=== PATIENT | female | born 1950 | race Caucasian/White ===

== ENCOUNTER 2018-01-05 16:22 | Emergency (ER) | payer OTHER, MEDICAID ==
--- NOTE | 2018-01-05 16:29 | EDPHY ---
H & P Source: Patient, Police, Old records Exam Limitations: Clinical condition - Medical/Surgical History Hx Asthma: Yes Hx Chronic Respiratory Disease: Yes Hx Diabetes: No Hx Cardiac Disease: No Hx Renal Disease: No Hx Cirrhosis: No Hx Alcoholism: No Hx HIV/AIDS: No Hx Splenectomy or Spleen Trauma: No Other PMH: copd, paranoid schizophrenia, schizoaffective do - Social History Smoking Status: Heavy smoker Time Seen by Provider: 01/05/18 16:28 HPI/ROS: HPI: This is a 67-year-old female who presents with Chief Complaint: Suicidal ideation, M1 hold Location:psych Quality: Psychotic Duration: Today Signs and Symptoms: Unable to obtain due to clinical condition Timing: Acute on chronic Severity: Severe Context: Patient has a history of paranoid schizophrenia, schizoaffective disorder presents via police on M1 hold in 4 point restraints. 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 Since that time, she has remained in her cell and been very uncooperative. Today, crisis nurse tried to evaluate the patient and she became belligerent, uncooperative. She tried to scoop feces out of the toilet and throw on the division officer weapons department nurse. They found her covered in feces, delusional in her retirement cell. They placed on M1 hold and brought her to the emergency room for further evaluation in 4 point restraints. Patient is rambling with unwillingness to answer any questions. She has a spit mask covering her head. Modifying Factors: None Comment: ROS: see HPI Constitutional: No fever, no chills, no weight loss Eyes: No blurred vision Respiratory: No shortness of breath, no cough Cardiovascular: No chest pain Gastrointestinal: No nausea, no vomiting, no diarrhea Genitourinary: No dysuria Extremities: No myalgias Neurologic: No weakness, no numbness Skin: No rashes Hematologic: No bruising, no bleeding MEDICAL/SURGICAL/SOCIAL HISTORY: Medical history: copd, paranoid schizophrenia, schizoaffective do Surgical history: Denies Social history: History of homelessness but [place]. Smoker. Denies alcohol use. CONSTITUTIONAL: Petite, disheveled uncooperative elderly white female, yelling and screaming, awake and alert, no obvious distress HEENT: Atraumatic and normocephalic, PERRL, EOMI. Tympanic membranes clear. Oropharynx clear, no exudate and moist pink mucosa. Airway patent. No lymphadenopathy. No meningismus. Cardiovascular: Normal S1/S2, regular rate, regular rhythm, without murmur rub or gallop. PULMONARY/CHEST: Symmetrical and nontender. Clear to auscultation bilaterally. Good air movement. No accessory muscle usage. ABDOMEN: Soft, nondistended, nontender, no rebound, no guarding, no peritoneal signs, no masses or organomegaly. No CVAT. EXTREMITIES: 2/2 pulses, strength 5/5, no deformities, no clubbing, no cyanosis or edema. NEUROLOGICAL: no focal neuro deficits. GCS 15. SKIN: Warm and dry, no erythema. no rash. Good capillary refill. PSYCH: Poor eye contact, + flight of ideas, + tangential disorganized thought process, poor insight and judgment, unknown auditory and visual command hallucinations, unknown suicidal ideation with a plan, unknown homicidal ideation, + paranoid ([place]) Constitutional: Initial Vital Signs Temperature (C) 36.8 C 01/05/18 17:14 Heart Rate 111 H 01/05/18 17:14 Respiratory Rate 24 H 01/05/18 17:14 Blood Pressure 178/77 H 01/05/18 17:14 O2 Sat (%) 98 01/05/18 17:14 O2 Delivery Mode Room Air Allergies/Adverse Reactions: Tetanus Vaccines and Toxoid [Tetanus] Allergy (Verified 08/27/13 11:23) Home Medications: Medication Instructions Recorded fluPHENAZine DECANOATE 25 mg IJ Q21D 11/12/13 [Fluphenazine Decanoate] levOFLOXACIN [Levaquin] 500 mg PO DAILY #10 tab 10/29/15 predniSONE [prednisone 20mg (RX)] 3 tab PO DAILY #15 tab 10/29/15 Medical Decision Making ED Course/Re-evaluation: 1630: Agree with M1 hold upon arrival. Given IM Haldol 5 mg in IM Ativan 2 mg due to patient being at harm to herself as well as staff. Labs and UDS ordered. 2002: Reviewed labs and UDS positive for benzodiazepines. Medically clear for mental health evaluation. Given Zyprexa TLC evaluated patient looking for placement at [address] [place] [address]. 0000: End of shift. Signed over to Dr. Stack pending placement at [address] [place] [address]. This patient was seen under the supervision of my primary supervising physician. I evaluated care for this patient independently. Discussed this patient with Dr. Coronado who did not see the patient. (Carolina Kirkland) [id number]: Patient signed out to Dr. Hoffman at shift-change. Will most likely be admitted to . (Francis Stack) Differential Diagnosis: Differential diagnosis includes but is not limited to psychosis, emigdio, schizophrenia, suicidal ideation. (Carolina Kirkland) - Data Points Laboratory Results: Laboratory Results 01/05/18 16:40 01/05/18 16:40 01/05/18 19:29 Urine Opiates Screen NEGATIVE (NEGATIVE) Urine Barbiturates NEGATIVE (NEGATIVE) Ur Phencyclidine Scrn NEGATIVE (NEGATIVE) Ur Amphetamine Screen NEGATIVE (NEGATIVE) U Benzodiazepines Scrn NON-NEGATIVE H (NEGATIVE) Urine Cocaine Screen NEGATIVE (NEGATIVE) U Marijuana (THC) Screen NEGATIVE (NEGATIVE) Medications Given: Discontinued Medications Haloperidol Lactate (Haldol Injection) 5 mg IM EDNOW ONE Stop: 01/05/18 16:32 Last Admin: 01/05/18 17:04 Dose: 5 mg Lorazepam (Ativan Injection) 2 mg IVP EDNOW ONE Stop: 01/05/18 16:32 Last Admin: 01/05/18 17:05 Dose: 2 mg Olanzapine (Zyprexa Zydis) 10 mg PO EDNOW ONE Stop: 01/05/18 17:43 Last Admin: 01/05/18 18:18 Dose: 10 mg Olanzapine (Olanzapine) 10 mg PO ONCE ONE Stop: 01/06/18 05:23 Last Admin: 01/06/18 06:08 Dose: 10 mg Departure - Departure Clinical Impression: Paranoid schizophrenia Condition: Fair Referrals: NONE *PRIMARY CARE P,. [Primary Care Provider] - As per Instructions
[2018-01-05] MEDS ORDERED: LORazepam 2 MG/ML INJ IVP ONE (16:31)
[2018-01-05] MEDS ORDERED: HALOPERIDOL LACT 5 MG/ML INJ IM ONE (16:31)
[2018-01-05 16:53] LABS: PLATELET COUNT 293 10^3/uL (150-400)
[2018-01-05] MEDS ORDERED: OLANZapine DISINTEGR 10 MG TAB PO ONE (17:42)
[2018-01-06] MEDS ORDERED: OLANZapine 5 MG TAB PO ONE (05:22)
[2018-01-06] MEDS ORDERED: OLANZapine DISINTEGR 10 MG TAB ONE (05:23)
--- NOTE | 2018-01-07 17:13 | CPEKG ---
Heart Rate: 98 RR Interval: 612 P-R Interval: 156 QRSD Interval: 86 QT Interval: 332 QTC Interval: 424 P [place]: 86 QRS [place]: 73 T Wave [place]: 64 EKG Severity - ABNORMAL ECG - EKG Impression: SINUS ARRHYTHMIA, RATE 64-117 EKG Impression: BIATRIAL ABNORMALITIES EKG Impression: BORDERLINE INFERIOR Q WAVES Electronically Signed By: Hiram Haider 07-Jan-2018 17:27:32
[2018-01-08] MEDS ORDERED: NOREPINEPHRINE/NS 500 ML IV SCH (03:30)
[2018-01-08] MEDS ORDERED: OLANZapine DISINTEGR 10 MG TAB PO ONE (11:41)
[2018-01-08] MEDS ORDERED: HALOPERIDOL LACT 5 MG/ML INJ IVP ONE (11:50)
[2018-01-08] MEDS ORDERED: HALOPERIDOL LACT 5 MG/ML INJ IM ONE (12:02)
[2018-01-08 12:38] VITALS: BP 109/64; PULSE 82; RESP 16; TEMP 98.6; O2SAT 98
== END 2018-01-08 12:37 ==
LOC: EDUNIT#
DX: F20.0 Paranoid schizophrenia (principal); J44.9 Chronic obstructive pulmonary disease, unspecified; F17.200 Nicotine dependence, unspecified, uncomplicated
CPT/HCPCS: 93005; 96372; 96374; 99285; J1630; J2060; 80305; G0480

== ENCOUNTER 2018-04-09 12:39 | Emergency (ER) | payer OTHER, MEDICAID ==
--- NOTE | 2018-04-09 12:49 | EDPHY ---
H & P Source: Patient, Police, RN/MD, Old records Exam Limitations: No limitations - Medical/Surgical History Hx Asthma: Yes Hx Chronic Respiratory Disease: Yes Hx Diabetes: No Hx Cardiac Disease: No Hx Renal Disease: No Hx Cirrhosis: No Hx Alcoholism: No Hx HIV/AIDS: No Hx Splenectomy or Spleen Trauma: No Other PMH: copd, paranoid schizophrenia, schizoaffective do - Social History Smoking Status: Heavy smoker Time Seen by Provider: 04/09/18 12:48 HPI/ROS: HPI: This is a 68-year-old female who presents with Chief Complaint: M1 hold Location: psych Quality: Psychosis Duration: Today Signs and Symptoms:+ paranoia, + auditory and visual hallucinations, no suicidal ideation, no homicidal ideation Timing: Acute on chronic Severity: Severe Context: Patient is brought in on ER stretcher on M1 hold by police for being gravely disabled. She is rambling and unable to answer questions. Every few words starts with the F word. She reports that she does not want to take the injections that are mandated by the court for her to get because "they are too big of dose" and "they are trying to kill me." Patient has a history of paranoid schizophrenia and schizoaffective disorder. Patient is homeless. Denies any recent alcohol or drug use. Patient refuses to answer any more questions during the interview, states "I'm not schizophrenic, I want to speak with a real doctor." Modifying Factors: None Comment: ROS: Difficult due to clinical condition MEDICAL/SURGICAL/SOCIAL HISTORY: Medical history: copd, paranoid schizophrenia, schizoaffective do Surgical history: Denies Social history: Homeless. Heavy smoker. Family history noncontributory. CONSTITUTIONAL: Elderly white female wearing a stocking cap, untidy, awake and alert, no obvious distress HEENT: Atraumatic and normocephalic, PERRL, EOMI. Nares patent; no rhinorrhea; no nasal mucosal edema. Tympanic membranes clear. Oropharynx clear, no exudate and moist pink mucosa. Airway patent. No lymphadenopathy. No meningismus. Cardiovascular: Normal S1/S2, regular rate, regular rhythm, without murmur rub or gallop. PULMONARY/CHEST: Symmetrical and nontender. Clear to auscultation bilaterally. Good air movement. No accessory muscle usage. ABDOMEN: Soft, nondistended, nontender, no rebound, no guarding, no peritoneal signs, no masses or organomegaly. No CVAT. EXTREMITIES: 2/2 pulses, strength 5/5, no deformities, no clubbing, no cyanosis or edema. NEUROLOGICAL: no focal neuro deficits. GCS 15. SKIN: Warm and dry, no erythema. no rash. Good capillary refill. PSYCH: Poor eye contact, + flight of ideas, + tangential disorganized thought process, poor insight and judgment, + auditory and visual command hallucinations , no suicidal ideation with a plan, no homicidal ideation, + paranoid ([place]ina Kirkland) Constitutional: Initial Vital Signs Temperature (C) 36.8 C 04/09/18 12:54 Heart Rate 104 H 04/09/18 12:54 Respiratory Rate 20 04/09/18 12:54 Blood Pressure 151/115 H 04/09/18 12:54 O2 Sat (%) 94 04/09/18 12:54 O2 Delivery Mode Room Air Allergies/Adverse Reactions: Tetanus Vaccines and Toxoid [Tetanus] Allergy (Verified 08/27/13 11:23) Home Medications: Medication Instructions Recorded fluPHENAZine DECANOATE 25 mg IJ Q21D 11/12/13 [Fluphenazine Decanoate] levOFLOXACIN [Levaquin] 500 mg PO DAILY #10 tab 10/29/15 predniSONE [prednisone 20mg (RX)] 3 tab PO DAILY #15 tab 10/29/15 Medical Decision Making ED Course/Re-evaluation: 1245: Agree with M1 hold placed by police. Labs and UDS ordered. Given Zyprexa 5 ODT. Patient remains calm if not bothered and will lie down on bed. The moment you try to engage the patient in a conversation, she becomes agitated. 1320: Labs reviewed and grossly unremarkable. Still awaiting urine sample. 1410: Urine drug screen negative. Medically clear for mental health evaluation. 1415: EPS called. 1630: EPS looking for placement. 1705: End of shift. Signed over to Dr. Bhatti. Pending placement and bed assignment. This patient was seen under the supervision of my secondary supervising physician. I evaluated care for this patient independently. Discussed this patient with Dr. Gentile who did not see the patient. (Carolina Kirkland) This patient was under my care for a 2 hours. She has undergone psychiatric evaluation and placement is being sought. She has been sedated with Haldol and Ativan and has been sleeping. Her care will be transferred to Dr. Ledesma at 11 PM. (Luz Marina Bhatti) 1:00 a.m.- The patient has been accepted for transfer at [facility] by Dr. Dillard, I have completed the EMTALA form. (Alena Ledesma) 7:00 p.m. the patient began yelling and screaming and throwing things and arguing with security. I have ordered Haldol and Ativan. She has already been evaluated and is awaiting psychiatric placement. 9:00 p.m. the patient is calm and quiet. Care transferred to Dr. Luz Marina Bhatti. Is transferred pending. (Ladarius Gentile) Differential Diagnosis: Differential diagnosis includes but is not limited to paranoid schizophrenia, delusional disorder, emigdio, schizoaffective disorder. (Carolina Kirkland) - Data Points Laboratory Results: Laboratory Results 04/09/18 12:45 04/09/18 12:45 Medications Given: Discontinued Medications Haloperidol Lactate (Haldol Injection) 10 mg IM EDNOW ONE Stop: 04/09/18 18:48 Last Admin: 04/09/18 18:52 Dose: 10 mg Lorazepam (Ativan Injection) 2 mg IM EDNOW ONE Stop: 04/09/18 18:46 Last Admin: 04/09/18 18:53 Dose: 2 mg Olanzapine (Zyprexa Zydis) 5 mg PO EDNOW ONE Stop: 04/09/18 12:54 Last Admin: 04/09/18 13:56 Dose: Not Given Olanzapine (Zyprexa Zydis) 5 mg PO EDNOW ONE Stop: 04/09/18 17:18 Last Admin: 04/09/18 17:24 Dose: 5 mg Departure - Departure Disposition: Other Psych, Not [facility] Clinical Impression: Paranoid schizophrenia, Noncompliance with medication regimen Condition: Fair Referrals: NONE *PRIMARY CARE P,. [Primary Care Provider] - As per Instructions
[2018-04-09] MEDS ORDERED: OLANZapine DISINTEGR 5 MG TAB PO ONE ×2 (12:53→17:17)
[2018-04-09 13:00] LABS: PLATELET COUNT 381 10^3/uL (150-400)
[2018-04-09] MEDS ORDERED: LORazepam 2 MG/ML INJ IM ONE (18:45)
[2018-04-09] MEDS ORDERED: HALOPERIDOL LACT 5 MG/ML INJ IM ONE (18:47)
[2018-04-10 01:02] VITALS: BP 140/83
== END 2018-04-10 01:15 ==
LOC: EDUNIT#
DX: F20.0 Paranoid schizophrenia (principal); J44.9 Chronic obstructive pulmonary disease, unspecified; F17.200 Nicotine dependence, unspecified, uncomplicated; Z91.14 Patient's other noncompliance with medication regimen
CPT/HCPCS: 80305; G0480; J1630; J2060